=== PATIENT | male | born 1985 | race Caucasian/White ===

== ENCOUNTER 2019-02-18 08:05 | Outpatient (CLI) | payer BC ==
--- NOTE | 2019-02-18 09:18 | ULT ---
ULTRASOUND ABDOMEN COMPLETE HISTORY: Elevated liver enzymes. TECHNIQUE: Gonzalez-scale ultrasound evaluation of the liver, gallbladder, spleen, pancreas, common bile duct, kidne ys, abdominal aorta, and inferior vena cava (IVC). FINDINGS: There is increased echogenicity of the imaged portions of the liver. Portions are not visualized whi ch has precluded reliable evaluation of the liver in this regard. No acute gallbladder pathology. T he common duct is normal in diameter. No hydronephrosis of either kidney. The spleen is unremarkabl e. Imaged aspects of the aorta and IVC are grossly unremarkable. Decreased acoustic penetration of the abdomen due to overlying body wall soft tissues does limit sensitivity of the assessment. IMPRESSION: 1. No definite acute abnormality of the abdomen is identified. There is increased echogenicity of t he hepatic parenchyma which can be seen in the setting of hepatic steatosis. 2. Evaluation is limited by the degree of overlying body wall soft tissues and resultant persistent shadowing/decreased acoustic penetration of the abdominal contents. POS: [facility]
== END 2019-02-18 08:06 | disposition home or self-care (01) ==
LOC: SCSULT 08:05
PROVIDERS: ATTEND Family Medicine
DX: R74.0 Nonspecific elevation of levels of transaminase and lactic acid dehydrogenase [LDH] (principal)
CPT/HCPCS: 76700